=== PATIENT | female | born 1940 | race Caucasian/White ===

== ENCOUNTER → 2016-09-25 | Outpatient (CLI) | payer OTHER ==
[~2016-09-25] MED LIST: ALBU1AER9; AMLO10TA2 PO; ASPCH81X PO; B COMPLEX; BACL10TA PO; CHOL1CAP57 PO; FENO134C2 PO; FIBER PO; FRS/40 PO; HYDR-3763 PO; LEVO75TA PO; LOSA1TAB PO; MAGN250T8 PO; METF500T PO; MOME50SP5 INTNAS; MULTTAB58 PO; POTA20TA16 PO; advair inhaler INH; tumeric PO
--- NOTE | 2016-09-25 17:15 | EEG Procedure Note ---
EEG Procedure Note Date of Service Sep 25, 2016. Start / End Times Start Time: 3:06 PM End Time: 3:27 PM Referring Physician Dejan Tovar MD History 76-year-old female with dyspnea on exertion. EEG for further evaluation of possible seizure etiology. Patient do not know her home medications. Home Medication List Scheduled Albuterol (Proair Hfa), 2 PUFFS PRN Amlodipine Besylate (Norvasc), 10 MG PO DAILY Aspirin (Aspirin Chewable), 81 MG PO DAILY Baclofen (Lioresal), 10 MG PO BID Cholecalciferol (Vitamin D3), 5,000 UNIT PO DAILY Fenofibrate Micronized (Tricor), 134 MG PO DAILY Furosemide (Lasix), 40 MG PO DAILY Hydrocodon/Acetaminophen 10MG/300MG (Vicodin Hp (10MG/300MG)), 1 TAB PO QID Levothyroxine Sodium (Synthroid), 1 TAB PO DAILY Losartan Potassium (Cozaar), 1 TAB PO DAILY Magnesium Oxide (Mg Supplement (Magnesium), 1 TAB PO DAILY Metformin Hcl (Glucophage), 500 MG PO DAILY Mometasone Furoate (Nasonex), 1 SPRAY INTNAS DAILY Multiple Vitamin (Multivitamin), 1 TAB PO DAILY Potassium Ext Rel (Klor-Con), 2 TAB PO DAILY [B Complex], 1 TABLET DAILY [advair inhaler ], 2 PUFFS INH BIDM [fiber capsule ], 2 TAB PO BIDM [tumeric], 2 CAP PO DAILY Description This is a 21 electrode EEG with a single channel dedicated to limited EKG. The electrodes were placed in accordance with the International 10-20 system. At the start of the recording the patient was in an awake state. Background was well organized and composed of symmetric mixed alpha and beta frequencies. There was a symmetric well-formed moderate amplitude 10-11 Hz posterior dominant rhythm that was reactive to eye opening and closure. Hyperventilation was not done. Intermittent photic stimulation at various frequencies was not tolerated by the patient had to be prematurely stopped, but did not produced no abnormalities. Sleep was indicated by vertex waves and symmetric sleep spindles. Interpretation This is a normal awake and asleep routine EEG. There was no electrographic seizures or epileptiform discharges. Clinical Correlation A normal EEG does not rule out epilepsy if there is a strong clinical suspicion.
--- NOTE | 2016-10-08 13:32 | CODING QUERY NO DIAGNOSIS ---
TREATMENT RENDERED WITHOUT A DIAGNOSIS To promote full compliance with coding requirements relating to patient care, physician participation is requested in all cases of director project management uncertainty. Please assist us with providing a diagnosis/symptom for the test(s) below: A diagnosis/symptom was not documented on your Order. A valid diagnosis/symptom is required to bill all insurances. Please remember that we are unable to code a diagnosis of rule out, probable, possible, questionable, or suspected. Tests that require a diagnosis: DOS: 09/25/16 * EEG DIAGNOSIS: Provider Signature: Date: Thank you [facility] Information Management Once completed, please kindly fax back to [phone] For questions please call [phone]
== END | disposition home or self-care (01) ==
LOC: C.NEUR 14:32
PROVIDERS: ATTEND Internal Medicine Sports Medicine
DX: Z01.89 Encounter for other specified special examinations (principal)

== ENCOUNTER → 2016-10-02 | Outpatient (CLI) | payer OTHER ==
--- NOTE | 2016-10-02 14:51 | ECHOCARDIOGRAM REPORT ---
*NOTICE TO RECEIVING LIBERTARIAN AGENCY This information is strictly Confidential and protected under [place] law. [place] law prohibits you from making any further disclosure of this information unless further disclosure is expressly permitted by the written consent of the person to whom it pertains or is authorized by law. A general authorization for the release of medical or other information is not sufficient for this purpose. Hospital accepts no responsibility if the information is made available to any other person, INCLUDING THE PATIENT. Interpretation Summary * Name: JOHN BERNABE Study Date: 10/02/2016 01:27 PM BP: 152/75 mmHg * Patient Location: [facility] HR: 79 * : 1940 (M/d/yyyy) Gender: Female Height: 59 in * Age: 76 yrs Ethnicity: CA Weight: 186 lb * Ordering Physician: Dejan Tovar * Referring Physician: Dejan Tovar. * Performed By: Ansley Bardales RCS * * Reason For Study: ESPINOZA * BSA: 1.8 m2 * -- Conclusions -- * 1. Normal LV size. Mild concentric LVH. * 2. Normal LV systolic function. LVEF 60-65%. No regional wall motion abnormalities. * 3. Normal RV size and function. * 4. Moderate aortic valve sclerosis without stenosis. Trace AI. * 5. Moderate mitral annular calcification with mild mitral stenosis and trace MR. * 6. Grade I diastolic dysfunction. * 7. Normal estimated PA pressures. Estimated RA pressure 8 mmHg. * 8. No prior studies for comparison. Procedure Details * Left Ventricle The left ventricle is grossly normal size. There is mild concentric left ventricular hypertrophy. Ejection Fraction = 60-65%. No regional wall motion abnormalities noted. * Right Ventricle The right ventricle is grossly normal size. The right ventricular systolic function is normal as assessed by tricuspid annular plane systolic excursion (TAPSE) (normal >1.5 cm). * Atria The left atrium is mildly dilated. Right atrial size is normal. No ASD detected; PFO is not assessed. * Mitral Valve There is moderate mitral annular calcification. There is mild mitral stenosis. There is trace mitral regurgitation. * Tricuspid Valve The tricuspid valve is not well visualized, but is grossly normal. There is no tricuspid stenosis. There is trace tricuspid regurgitation. Right ventricular systolic pressure is normal. * Aortic Valve Aortic valve sclerosis moderate, without significant aortic valvular stenosis. No hemodynamically significant valvular aortic stenosis. Trace aortic regurgitation. * Pulmonic Valve The pulmonary valve is not well seen, but the Doppler examination is normal without significant regurgitation or stenosis. * Great Vessels The aortic root and proximal ascending aorta are normal sized. * Pericardium/Pleural There is no pericardial effusion. * Great Vessels IVC < 2.0, <50% change with respiration. Est RA pressure 8 mmHg * Left Ventricular Diastolic Function Grade I diastolic dysfunction, (abnormal relaxation pattern). * * MMode 2D Measurements and Calculations * IVSd 1.6 cm * IVSs 1.5 cm * * LVIDd 3.6 cm * LVIDs 2.4 cm * LVPWd 1.4 cm * LVPWs 1.4 cm * * IVS/LVPW 1.1 * FS 35.3 % * EDV(Teich) 55.7 ml * ESV(Teich) 19.2 ml * EF(Teich) 65.5 % * * EDV(cubed) 48.1 ml * ESV(cubed) 13.0 ml * EF(cubed) 72.9 % * % IVS thick -5.93 % * % LVPW thick -4.93 % * * LV mass(C)d 206.9 grams * LV mass(C)dI 115.7 grams/m\S\2 * LV mass(C)s 107.9 grams * LV mass(C)sI 60.4 grams/m\S\2 * * CO(Teich) 2.9 l/min * CI(Teich) 1.6 l/min/m\S\2 * SV(Teich) 36.5 ml * SI(Teich) 20.4 ml/m\S\2 * CO(cubed) 2.8 l/min * CI(cubed) 1.5 l/min/m\S\2 * SV(cubed) 35.0 ml * SI(cubed) 19.6 ml/m\S\2 * * Ao root diam 2.9 cm * Ao root area 6.6 cm\S\2 * ACS 0.87 cm * LA dimension 4.0 cm * * asc Aorta Diam 3.2 cm * * LA/Ao 1.4 * LVOT diam 1.9 cm * LVOT area 2.9 cm\S\2 * * LVAd ap4 19.9 cm\S\2 * LVLd ap4 7.7 cm * EDV(MOD-sp4) 43.0 ml * LVAs ap4 9.9 cm\S\2 * LVLs ap4 5.9 cm * ESV(MOD-sp4) 15.0 ml * EF(MOD-sp4) 65.1 % * * LVAd ap2 18.0 cm\S\2 * LVLd ap2 7.1 cm * EDV(MOD-sp2) 39.0 ml * LVAs ap2 9.9 cm\S\2 * LVLs ap2 5.7 cm * ESV(MOD-sp2) 14.0 ml * EF(MOD-sp2) 64.1 % * * CO(MOD-sp4) 2.2 l/min * CI(MOD-sp4) 1.2 l/min/m\S\2 * SV(MOD-sp4) 28.0 ml * SI(MOD-sp4) 15.7 ml/m\S\2 * * CO(MOD-sp2) 2.0 l/min * CI(MOD-sp2) 1.1 l/min/m\S\2 * SV(MOD-sp2) 25.0 ml * SI(MOD-sp2) 14.0 ml/m\S\2 * * * * * * Doppler Measurements and Calculations * MV E max alejandro 123.4 cm/sec * MV A max alejandro 158.4 cm/sec * * MV E/A 0.78 * * MV P1/2t max alejandro 128.8 cm/sec * MV P1/2t 121.5 msec * MVA(P1/2t) 1.8 cm\S\2 * MV dec slope 310.3 cm/sec\S\2 * MV dec time 0.48 sec * * Ao V2 max 201.7 cm/sec * Ao max PG 16.3 mmHg * Ao max PG (full) 10.5 mmHg * NATHANIEL(V,A) 1.8 cm\S\2 * NATHANIEL(V,D) 1.8 cm\S\2 * * LV V1 max PG 5.8 mmHg * * LV V1 max 120.0 cm/sec * * PA V2 max 135.7 cm/sec * PA max PG 7.4 mmHg * * TR max alejandro 220.3 cm/sec * *
== END | disposition home or self-care (01) ==
LOC: C.CPL 13:09
PROVIDERS: ATTEND Internal Medicine Sports Medicine
DX: R06.09 Other forms of dyspnea (principal); I35.8 Other nonrheumatic aortic valve disorders

== ENCOUNTER → 2017-05-05 | Outpatient (CLI) | payer OTHER ==
[2016-05-08 13:27] VITALS: BP 160/82; PULSE 94
[~2017-05-05] MED LIST changes: +LIRA18IN SC
[2017-05-05 14:14] VITALS: BP 136/67; PULSE 78; TEMP 36.8; O2SAT 93
--- NOTE | 2017-05-05 16:11 | Radiation Oncology Follow-Up ---
Radiation Oncology Follow-Up Date of Visit May 05, 2017. Reason For Visit Annual follow-up Radiation Completion Date 09/29/12 Diagnosis (1) Intraductal carcinoma in situ of right breast Status: Resolved Onset Date: 06/22/2012 Stage: 0 Permanent Comment: Abnormal right breast mammogram Status post biopsy revealing DCIS Status post lumpectomy, pathologic stage [id number] Estrogen receptor positive, progesterone receptor positive, HER-2/keerthi negative Status post completion of radiation therapy 09/29/2012 received 5940 cGy Ongoing treatment with tamoxifen Last Edited By: Barbara Christopher on May 10, 2015 15:49 Interim History She's been doing well over this past year. She did note some fullness to the right axilla last week. She stated she noticed this when lying in bed. She checked it again a couple days later and a fullness had gone. She is having some issues currently with allergies. He occasionally she will have discomfort in the right lower ribs. This was previously checked by her breast surgeon. He felt that this was some inflammation. This did improve steadily over time. When it does occasionally occur she'll have a pain level between 4-5. She'll take ibuprofen and this will resolve. She has to be careful not to take the ibuprofen for very long because this some will cause GI upset. She was unable to take tamoxifen. She stopped taking the medication on her own. Allergies Coded Allergies: Diazepam (Unverified Allergy, Severe, stopped breathing, 08/04/12) Atropine (Unverified Allergy, Intermediate, felt like there was a band around her head, 08/04/12) Latex1 -Allergic Contact Dermititis (Unverified Allergy, Intermediate, rash, 08/04/12) Home Medications Scheduled Albuterol (Proair Hfa), 2 PUFFS PRN Amlodipine Besylate (Norvasc), 10 MG PO DAILY Aspirin (Aspirin Chewable), 81 MG PO DAILY Baclofen (Lioresal), 10 MG PO BID Cholecalciferol (Vitamin D3), 5,000 UNIT PO DAILY Fenofibrate Micronized (Tricor), 134 MG PO DAILY Furosemide (Lasix), 40 MG PO DAILY Hydrocodon/Acetaminophen 10MG/300MG (Vicodin Hp (10MG/300MG)), 1 TAB PO QID Levothyroxine Sodium (Synthroid), 1 TAB PO DAILY Liraglutide (Victoza), 1.2 ML SC DAILY Losartan Potassium (Cozaar), 1 TAB PO DAILY Metformin Hcl (Glucophage), 850 MG PO BID Multiple Vitamin (Multivitamin), 1 TAB PO DAILY Potassium Ext Rel (Klor-Con), 2 TAB PO DAILY [B Complex], 1 TABLET DAILY [advair inhaler ], 1 PUFFS INH BIDM Scheduled PRN Mometasone Furoate (Nasonex), 1 SPRAY INTNAS DAILY PRN for allergies [fiber capsule ], 2 TAB PO BIDM PRN for Constipation Review of Systems Gastrointestinal: Symptoms: WNL, Nausea GI Comments: Gets nauseous at times, since RXT feels like throat spasms Oral: Symptoms: No Problems Other Oral Symptoms: taste is off at times, gets throat spasms since RXT Respiratory: Symptoms: WNL Respiratory Comments: ESPINOZA - has asthma Other Respiratory: Cough at times with PND/Allergies Urinary: Symptoms: WNL Comments: "drinks a lot of fluids, denies pain or burning " Skin: Symptoms: No Problems Other Skin Symptoms: Tenderness noted at times in right breast Breast: Right Upper Arm Measurement: 31.5 Right Mid Arm Measurement: 24.8 Right Wrist Measurement: 15.7 Left Upper Arm Measurement: 32.5 Left Mid Arm Measurement: 25.0 Left Wrist Measurement: 16.0 Arm Dominence: Right Patient Cosmetic Evaluation: Good Staff Cosmetic Evalaluation: Good Physical Exam Vital Signs Date Time Temp Pulse Resp B/P (MAP) Pulse Ox O2 Delivery O2 Flow Rate FiO2 05/05/17 14:14 36.8 78 16 136/67 93 Pain: Pain Onset: 1988 Pain Duration: and can be sharp Side: Mid Pain Location: knee, back and left hip Patient Pain Scale: 0 - 10 Initial Pain Intensity: 0.0 Pain Description: Dull, Aching Additional Comments: constant even with pain meds Fatigue: None General Appearance: no apparent distress Eyes: normal inspection, EOMI ENT: normal ENT inspection, hearing grossly normal Respiratory/Chest: lungs clear, no respiratory distress, no accessory muscle use Breast: Breast examination reveals a well-healed incision of the right breast. The nipple is absent. There are fibrous changes above the incision line. There are no masses or tenderness and no axillary adenopathy. She has no skin retractions. Using the [place] score cosmesis she has a good outcome. Left breast showed no masses or tenderness and no axillary adenopathy. Cardiovascular: regular rate, rhythm, no gallop, no murmur Abdomen: non tender, soft Neurologic/Psychiatric: no motor/sensory deficits, alert, normal mood/affect Skin: warm/dry Additional Studies She had a mammogram 09/30/2016. There was no evidence of breast malignancy. A diagnostic mammogram was recommended in 12 months. BI-RADS Category 2. Assessment & Plan Plan: Continue with annual mammography. Continue regular follow-up with her primary care physician. She occasionally takes ibuprofen for rib discomfort. We did discuss possible anti-inflammatory with less side effects. She may review this with her primary care physician. She may benefit to have a prescription for Celebrex to have when there is a flareup of the rib discomfort. We asked her to return to our office in 1 year. She may call if she has any questions or concerns in the interim. Total Time In Follow-Up I spent 20 minutes speaking to the patient performing examination. I spent 15 minutes reviewing information in completing this note. Copy To Roshan Bosch D.O.
== END | disposition home or self-care (01) ==
LOC: C.ONC 14:09
PROVIDERS: ATTEND Physician Assistant Medical
DX: Z08 Encounter for follow-up examination after completed treatment for malignant neoplasm (principal); Z92.3 Personal history of irradiation; Z85.3 Personal history of malignant neoplasm of breast